=== PATIENT | male | born 1960 | race African-American/Black ===

== ENCOUNTER → 2016-12-15 | Outpatient (CLI) | payer BC ==
[~2016-12-15] MED LIST: ASPIRIN EC325 MG PO; CARVEDILOL3.125 MG PO; COZAAR 50 MG TA50 M2 PO; KLOR-CON 1010 MEQ PO; LASIX 20 MG TAB20 MG PO; LASIX 40 MG TAB40 MG PO; LISINOPRIL5 MG PO; PROAIR HFA8.5 GM INH; PROAIR RESPICL90 MCG IH; TYLENOL325 MG PO
--- NOTE | ~2016-12-15 | 2DMMODE ---
[facility] [address] [place] [address] 2 D/M-MODE ECHOCARDIOGRAM Name: ANGELASERENITY DIANE [id number] Admission: 12/15/16 Attend Phys: Kevon Mcdonough Discharge: Date of : 60 Date of Service: 12/15/16 1616 Report #: [id number] THIS REPORT FOR: //name// APPROVED REPORT EXAM: Comprehensive 2D, Doppler, and color-flow Echocardiogram Patient Location: Out-Patient Blood Pressure: 102/77 mmHg HR: 84 bpm Rhythm: Pacemaker Other Information Study Quality: Good Indications Nonischemic cardiomyopathy. S/P defibrillator 08/2016 2D Dimensions RVDd: 59.30 mm LVEF(%): 18.01 (>50%) IVSd: 12.21 (7-11mm) LVOT Diam: 23.10 (18-24mm) LVDd: 73.41 mm PWd: 11.76 (7-11mm) Ascending Aorta: 32.76 mm LVDs: 67.22 (25-40mm) Aortic Root: 36.00 mm Sosa's LVEF: 18.01 % Volumes Left Atrial Volume (Systole) Single Plane 4CH: 129.80 mL Single Plane 2CH: 179.23 mL LA ESV Index: 85.00 mL/m2 Aortic Valve AoV Peak Juan.: 0.86 m/s AO Peak Gr.: 2.99 mmHg LV Max P.94 mmHg LV Max: 0.70 m/s Mitral Valve MV PHT: 44.18 ms MV E Max Juan.: 1.43 m/s E/A Ratio: 2.9 MV A Juan.: 0.49 m/s MV Decel. Time: 152.35 ms Pulmonary Valve [facility] [address] [place] [address] 2 D/M-MODE ECHOCARDIOGRAM Name: SERENITY MILLER DIANE Room #: [facility]#: [id number] Admission: 12/15/16 Attend Phys: Kevon Mcdonough Discharge: Date of : 60 Date of Service: 12/15/16 1616 Report #: [id number] PV Peak Juan.: 0.63 m/s PV Peak Gr.: 1.61 mmHg Tricuspid Valve TR Peak Juan.: 3.97 m/s RAP Estimate: 10.00 mmHg TR Peak Gr.: 62.95 mmHg RVSP: 73.00 mmHg Left Ventricle Left ventricle is moderate to severely dilated. Regional wall motion abnormalities are noted. There is normal left ventricular wall thickness. Left ventricular systolic function is moderate to severely decreased. LVEF is in the range of 25-30%. Grade III - reversible restrictive diastolic dysfunction. Right Ventricle Right ventricle is moderately dilated. Right ventricle is hypokinetic. Device lead is present in the right ventricle. Atria Left atrium is severely dilated. Right atrium is moderately dilated. Aortic Valve Aortic valve leaflets are mildly thickened. Mild aortic regurgitation. There is no aortic valvular stenosis. Mitral Valve The mitral valve is normal in structure. Severe mitral regurgitation. Tricuspid Valve The tricuspid valve is normal in structure. There is moderate to severe tricuspid regurgitation. The right atrial pressure is estimated at 10 mmHg. There is severe pulmonary hypertension with an estimated PAP of 73mmHg. Pulmonic Valve The pulmonary valve is normal in structure. Mild pulmonic regurgitation. Great Vessels The aortic root is normal in size. The ascending aorta is normal in size. IVC is dilated and collapses >50% with inspiration. Pericardium There is no pericardial effusion. [facility] [address] [place] [address] 2 D/M-MODE ECHOCARDIOGRAM Name: ANGELASERENITY CONTRERAS Room #: REG Maru#: [id number] Admission: 12/15/16 Attend Phys: Kevon Mcdonough Discharge: Date of : 60 Date of Service: 12/15/16 1616 Report #: [id number] <Conclusion> Left ventricle is moderate to severely dilated. Left ventricular systolic function is moderate to severely decreased. LVEF is in the range of 25-30%. Right ventricle is moderately dilated. Right ventricle is hypokinetic. Mild aortic regurgitation. The mitral valve is normal in structure. Severe mitral regurgitation. There is moderate to severe tricuspid regurgitation. The right atrial pressure is estimated at 10 mmHg. There is severe pulmonary hypertension with an estimated PAP of 73mmHg. Mild pulmonic regurgitation. <ELECTRONICALLY SIGNED> By: Josh Ibarra MD 12/15/16 1616 15 15 Josh Ibarra MD /INF
== END ==
LOC: CV 13:04
DX: I42.9 Cardiomyopathy, unspecified (principal)